=== PATIENT | male | born 2000 | race African-American/Black ===

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

== ENCOUNTER 2022-04-22 08:54 | Emergency (ER) | payer MEDICAID ==
[~2022-04-22] VITALS: Ht 175.3 cm; Wt 79.0 kg
[~2022-04-22 08:54] MED LIST changes: -ALBU6.7H2; +ALBU6.7H3
[2022-04-22 08:57] VITALS: BP 142/84
[2022-04-22 12:22] LABS: BASOPHILS % 0.5 % (0.0-2.0); EOSINOPHILS % 4.3 % (0.0-5.0); HEMATOCRIT. 48.8 % (42.0-52.0); LYMPHOCYTES % 20.7 % (20.0-50.0); MEAN CORPUSCULAR HEMOGLOBIN 27.5 pg (28.0-32.0); MEAN CORPUSCULAR VOLUME 83.8 fL (80.0-94.0); MEAN PLATELET VOLUME 7.4 fl (7.4-10.4); NEUTROPHILS % 64.5 % (40.0-76.0); PLATELET 267 x1000/uL (130-400); RED BLOOD CELL COUNT 5.82 mill/uL (4.7-6.1); RED CELL DISTRIBUTION WIDTH 12.9 % (11.6-14.6)
[2022-04-22 12:32] LABS: CHLORIDE 109 mEq/L (98-107)
[2022-04-22 14:59] LABS: CLARITY URINE CLEAR (CLEAR); COLOR URINE DARK YELLOW (YELLOW); KETONES URINE NEGATIVE (NEGATIVE); LEUKOCYTE ESTERASE URINE NEGATIVE (NEGATIVE); NITRITE URINE NEGATIVE (NEGATIVE); OCCULT BLOOD URINE NEGATIVE (NEGATIVE); PH URINE 5.5 (4.5-8.0); PROTEIN URINE 1+ (NEGATIVE); SPECIFIC GRAVITY URINE 1.037 (1.005-1.030)
== END 2022-04-22 15:34 | disposition home or self-care (01) ==
LOC: ER 08:54
DX: R05.9 Cough, unspecified (principal); R10.30 Lower abdominal pain, unspecified; Z20.822 Contact with and (suspected) exposure to COVID-19
CPT/HCPCS: 36415; 71045; 80053; 81003; 83690; 85025; 85610; 87426; 87804; 99284; C9803